=== PATIENT | female | born 1945 | race Caucasian/White ===

== ENCOUNTER 2016-10-30 16:05 | Inpatient (IN) | payer MEDICARE ==
--- NOTE | ~2016-10-30 | DS ---
Discharge Summary [facility] [address] [place]. [address] NAME: LORI YU : 41 STATUS : DIS IN PAT#: [id number] AGE: 71 ADM/REG DATE : 10/30/16 MR#: [id number] REPORT SERV DATE: 11/03/16 DICTATED BY: JANIE KELLER DATE: 11/02/16 REPORT STATUS : Draft TRANSCRIBED BY: MODL DATE: 11/02/16 ADMISSION DATE: 10/30/2016 DISCHARGE DATE: 11/02/2016 DISCHARGE DIAGNOSES: 1. Bacteremia with a coagulase-negative Staphylococcus, etiology is uncertain. 2. Negative transesophageal echocardiography for vegetation. 3. Influenza B positive with respiratory manifestation without pneumonia was treated. 4. Diabetes mellitus type 2, stable. 5. Essential hypertension. 6. Morbid obesity. Body mass index 44. 7. Anemia. 8. Chronic kidney disease stage 2, stable. 9. Osteoarthritis. 10.Aortic stenosis. 11.Obstructive sleep apnea using continuous positive airway pressure at home. CONSULTANTS: 1. Dr. Lagos. 2. Ba Dawkins M.D. PROCEDURE: Transesophageal echocardiogram, which did not show any vegetation of the valves. HISTORY OF PRESENT ILLNESS: This is a 71-year-old obese female patient, who initially came to the hospital with generalized weakness and shortness of breath. Please see dictated H and P done by Dr. Kaur dated October 23. HOSPITAL COURSE: Please see dictated discharge summary done by Dr. Karen Durand. Briefly, the patient has presented to the hospital with generalized weakness and shortness of breath, had evaluation and was found to have bacteremia. Three blood cultures have been positive with Staphylococcus, which is coagulase negative. Seen by Dr. Lagos from the [facility], was treated with empiric antibiotics at the beginning, was narrowed down to Ancef. She was found to have bacteremia, she was stabilized, and transferred to [facility] for obtaining a MICHEAL. Dr. 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 MICHEAL did not show any vegetation on her valves. Since there are no other causes or source of infection of this bacteremia, the patient was recommended continue the Ancef for a total of four weeks under Dr. Lagos's followup. She remains in stable condition and maximized inpatient benefit and she is stable enough to go home. We are setting up the home Ancef and home PT, and the patient will be discharged to home in stable condition. DISCHARGE MEDICATIONS: 1. Ancef 2 g every 8 hours IV. 2. Catapres patch, two patches every seven days. 3. Levemir 18 units twice a day. 4. Spiriva once a day. Discharge Summary [place] [id number] [place] [address] NAME: LORI YU : 41 STATUS : DIS IN PAT#: [id number] AGE: 71 ADM/REG DATE : 10/30/16 MR#: [id number] REPORT SERV DATE: 11/03/16 DICTATED BY: JANIE KELLER DATE: 11/02/16 REPORT STATUS : Draft TRANSCRIBED BY: MARIE DATE: 11/02/16 5. Florastor twice a day. 6. Myrbetriq 50 mg once a day. 7. Claritin 10 mg once a day. 8. Avapro 300 mg once a day. 9. Aspirin 81 mg once a day. 10.Apresoline 75 mg every eight hours. 11.Zocor 20 mg once at nighttime. 12.Singulair 10 mg once a day. 13.Labetalol 200 mg twice a day. 14.Dulera twice a day. 15.Senokot as needed. DISPOSITION: The patient is discharged to home with home health and home antibiotic treatment. The patient will need to follow weekly blood culture and blood work under Dr. Lagos's care. TIME SPENT: More than 30 minutes on discharge coordination and education. EKL/MODL Janie Keller M.D. / [id number] CC: Yolanda Dahl M.D.
--- NOTE | ~2016-10-30 | TEE ---
Transesophageal Echocardiogram [facility] [address] [place]. [address] NAME: LORI YU : 41 STATUS : ADM IN [facility]#: [id number] AGE: 71 ADM/REG DATE : 10/30/16 MR#: [id number] REPORT SERV DATE: 11/01/16 DICTATED BY: DATE: REPORT STATUS : Draft TRANSCRIBED BY: MODL DATE: 11/01/16 CHIEF COMPLAINT/REASON FOR STUDY: Bacteremia. Written informed consent obtained. Please see chart for documentation. PROCEDURE IN DETAIL: With the assistance of my Anesthesia colleagues, Mrs. Yu was sedated for the procedure. The transesophageal probe was placed with one attempt. There were no complications. 1. The aortic valve appeared trileaflet and mildly sclerotic. There was mild color flow evidence of aortic valvular regurgitation. No evidence of vegetations. 2. The left ventricular systolic function is grossly normal with a visually estimated ejection fraction greater than 50%. 3. The mitral valve appeared to open normally. There was trivial color flow and Doppler evidence for mitral valvular regurgitation. 4. The tricuspid valve opened normally. There was no significant tricuspid valvular regurgitation noted. 5. The pulmonary valve opened normally. There was mild color flow evidence for pulmonary valvular regurgitation. 6. The right ventricle appeared normal in chamber size and systolic function. 7. There was no evidence of pericardial effusion. 8. The thoracic aorta was examined. There was mild atherosclerotic plaque noted. IMPRESSION: 1. No evidence of infective endocarditis. 2. Mild aortic valvular regurgitation. 3. Mild pulmonary valvular regurgitation. 4. Normal left ventricular systolic function via visual estimate with an ejection fraction greater than 50%. LGC/MARIE Daphne Crowley M.D. / [id number] CC: Yolanda Dahl M.D.
[~2016-10-30 16:05] MED LIST: ADALAT CC60 MG PO; ADVAIR230P INH; ADVAIR250 INH; ALD250 PO; ALLEGRA180 PO; ALLEGRA60 MG OR; APRES25 PO; APRES50 PO; ASAB PO; AVAPRO300 MG PO; BYETTA SC; CATAPRES3 TOP; DIOVAN HCT320 MG/25 PO; DITROPAN XL10 MG PO; FLONASE NAS; FLONASE0.05 %; FUSION PLUS PO; HUMALOG SC; IBU800 PO; IMOD PO; L40 PO; LANTUS SC; MAXAIR AUTOHALE1 INH INH; METOLAZONE2.5 MG OR; MYRBETRIQ50 MG PO; NOVOLOG SC; NXL3 PO; NXL9 PO; PEPCID40 MG OR; SENTAB PO; SINGULAIR1 PO; SPIRIVA INH; SPIRO25 PO; TOVIAZ8 MG PO; TRAN200 PO; TUMSROLL PO; ULTRAM50 PO; VERELAN240 MG PO; VITD PO; ZAROX2.5B PO; ZOCOR20 PO; [UNRECOGNIZED DRUG - CODE] PO
[2016-10-31 04:22] LABS: BASOPHILS 0.1 %; BASOPHILS ABSOLUTE 0.01 10/3/uL (0.0-0.16); HEMATOCRIT 30.4 % (36.0-48.0); IMMATURE GRANULOCYTES 0.4 %; IMMATURE GRANULOCYTES ABSOLUTE 0.03 10/3/uL (0.0-0.11); LYMPHOCYTES 22.9 %; LYMPHOCYTES ABSOLUTE 1.82 10/3/uL (0.67-4.30); MEAN CORPUSCULAR HEMOGLOB 30.7 pg (26.0-34.0); MEAN PLATELET VOLUME 9.5 fL (9.2-13.0); MONOCYTES 12.3 %; MONOCYTES ABSOLUTE 0.98 10/3/uL (0.21-1.20); NEUTROPHILS 59.3 %; PLATELET COUNT 269 10/3/uL (150-400); RED CELL COUNT 3.26 10/6/uL (4.0-5.6); WHITE BLOOD CELLS 7.9 10/3/uL (4.5-10.5)
[2016-10-31 04:24] LABS: MANUAL DIFF NO %; MEAN CORPUS HGB CONC 32.9 g/dL (32.0-36.0); MEAN CORPUSCULAR VOLUME 93.3 fL (80-100)
[2016-10-31 04:30] LABS: INTERNATIONAL NORMAL RATI 1.3 UNITS (-); PROTIME (NOT ORD) 15.7 SEC (12.0-14.5)
[2016-10-31 04:36] LABS: BUN (BLOOD UREA NITROGEN) 22 MG/DL (6-23); CALCIUM, SERUM 9.2 MG/DL (8.5-10.4); CHLORIDE, SERUM 111 MMOL/L (96-112); CO2 (CARBON DIOXIDE) 23 MMOL/L (24-34); CREATININE 1.12 MG/DL (0.55-1.02); GFR AFRICAN AMERICAN 56 ML/MIN (>=60); GFR NON AFRICAN AMERICAN 49 ML/MIN (>=60); GLUCOSE, SERUM 98 MG/DL (60-99); PHOSPHORUS, SERUM 2.9 MG/DL (2.5-4.5); POTASSIUM, SERUM 4.5 MMOL/L (3.5-5.3); SODIUM, SERUM 145 MMOL/L (135-148)
[2016-11-01 04:59] LABS: BASOPHILS 0.1 %; BASOPHILS ABSOLUTE 0.01 10/3/uL (0.0-0.16); EOSINOPHILS 4.3 %; EOSINOPHILS ABSOLUTE 0.29 10/3/uL (0.0-0.53); HEMATOCRIT 30.3 % (36.0-48.0); HEMOGLOBIN 9.9 g/dL (12.0-16.0); IMMATURE GRANULOCYTES 0.6 %; IMMATURE GRANULOCYTES ABSOLUTE 0.04 10/3/uL (0.0-0.11); LYMPHOCYTES 25.4 %; LYMPHOCYTES ABSOLUTE 1.71 10/3/uL (0.67-4.30); MEAN CORPUS HGB CONC 32.7 g/dL (32.0-36.0); MEAN CORPUSCULAR HEMOGLOB 30.7 pg (26.0-34.0); MEAN CORPUSCULAR VOLUME 94.1 fL (80-100); MEAN PLATELET VOLUME 9.7 fL (9.2-13.0); MONOCYTES 15.1 %; MONOCYTES ABSOLUTE 1.02 10/3/uL (0.21-1.20); NEUTROPHILS 54.5 %; NEUTROPHILS ABSOLUTE 3.67 10/3/uL (2.02-8.40); PLATELET COUNT 271 10/3/uL (150-400); RBC DISTRIBUTION WIDTH 13.1 % (12.0-16.0); RED CELL COUNT 3.22 10/6/uL (4.0-5.6); WHITE BLOOD CELLS 6.7 10/3/uL (4.5-10.5)
[2016-11-01 05:03] LABS: INTERNATIONAL NORMAL RATI 1.1 UNITS (-); MANUAL DIFF NO %; PROTIME (NOT ORD) 14.3 SEC (12.0-14.5)
[2016-11-01 05:13] LABS: BUN (BLOOD UREA NITROGEN) 22 MG/DL (6-23); CHLORIDE, SERUM 112 MMOL/L (96-112); CO2 (CARBON DIOXIDE) 23 MMOL/L (24-34); CREATININE 1.24 MG/DL (0.55-1.02); GFR AFRICAN AMERICAN 50 ML/MIN (>=60); GFR NON AFRICAN AMERICAN 43 ML/MIN (>=60); GLUCOSE, SERUM 110 MG/DL (60-99); PHOSPHORUS, SERUM 2.9 MG/DL (2.5-4.5); POTASSIUM, SERUM 4.5 MMOL/L (3.5-5.3); SODIUM, SERUM 144 MMOL/L (135-148)
[2016-11-02 07:40] LABS: BASOPHILS 0.1 %; BASOPHILS ABSOLUTE 0.01 10/3/uL (0.0-0.16); EOSINOPHILS 2.8 %; HEMATOCRIT 30.6 % (36.0-48.0); HEMOGLOBIN 9.9 g/dL (12.0-16.0); IMMATURE GRANULOCYTES 0.3 %; IMMATURE GRANULOCYTES ABSOLUTE 0.02 10/3/uL (0.0-0.11); LYMPHOCYTES 21.3 %; LYMPHOCYTES ABSOLUTE 1.55 10/3/uL (0.67-4.30); MEAN CORPUS HGB CONC 32.4 g/dL (32.0-36.0); MEAN CORPUSCULAR HEMOGLOB 30.3 pg (26.0-34.0); MEAN CORPUSCULAR VOLUME 93.6 fL (80-100); MEAN PLATELET VOLUME 9.8 fL (9.2-13.0); MONOCYTES 13.2 %; MONOCYTES ABSOLUTE 0.96 10/3/uL (0.21-1.20); NEUTROPHILS 62.3 %; NEUTROPHILS ABSOLUTE 4.53 10/3/uL (2.02-8.40); PLATELET COUNT 271 10/3/uL (150-400); RBC DISTRIBUTION WIDTH 13.3 % (12.0-16.0); RED CELL COUNT 3.27 10/6/uL (4.0-5.6); WHITE BLOOD CELLS 7.3 10/3/uL (4.5-10.5)
[2016-11-02 07:41] LABS: MANUAL DIFF NO %
[2016-11-02 08:06] LABS: BUN (BLOOD UREA NITROGEN) 22 MG/DL (6-23); CALCIUM, SERUM 9.3 MG/DL (8.5-10.4); CHLORIDE, SERUM 112 MMOL/L (96-112); CO2 (CARBON DIOXIDE) 23 MMOL/L (24-34); CREATININE 1.26 MG/DL (0.55-1.02); GFR AFRICAN AMERICAN 49 ML/MIN (>=60); GFR NON AFRICAN AMERICAN 42 ML/MIN (>=60); GLUCOSE, SERUM 104 MG/DL (60-99); PHOSPHORUS, SERUM 3.4 MG/DL (2.5-4.5); POTASSIUM, SERUM 4.4 MMOL/L (3.5-5.3); SODIUM, SERUM 145 MMOL/L (135-148)
[2016-11-02] MEDS ORDERED: CEFAZ1 IV (16:06)
[2016-11-02] MEDS ORDERED: FLORASTOR250 MG PO (16:09)
== END 2016-11-02 19:12 | disposition home health service (06) | DRG 872 ==
LOC: 7NO 16:05
PROVIDERS: Internal Medicine; Internal Medicine Cardiovascular Disease
PROC: B246ZZ4 Ultrasonography of Right and Left Heart, Transesophageal (ICD-10-PCS; principal; 2016-11-01)
PROC: 02HV33Z Insertion of Infusion Device into Superior Vena Cava, Percutaneous Approach (ICD-10-PCS; 2016-11-01)
PROC: 4A02X4A Measurement of Cardiac Electrical Activity, Guidance, External Approach (ICD-10-PCS; 2016-11-01)
DX: R78.81 Bacteremia (principal); E11.22 Type 2 diabetes mellitus with diabetic chronic kidney disease; E11.65 Type 2 diabetes mellitus with hyperglycemia; Z68.41 Body mass index [BMI] 40.0-44.9, adult; I06.0 Rheumatic aortic stenosis; J10.1 Influenza due to other identified influenza virus with other respiratory manifestations; B95.7 Other staphylococcus as the cause of diseases classified elsewhere; N18.2 Chronic kidney disease, stage 2 (mild); M19.90 Unspecified osteoarthritis, unspecified site; G47.33 Obstructive sleep apnea (adult) (pediatric); E66.01 Morbid (severe) obesity due to excess calories; I12.9 Hypertensive chronic kidney disease with stage 1 through stage 4 chronic kidney disease, or unspecified chronic kidney disease; J44.9 Chronic obstructive pulmonary disease, unspecified; E78.5 Hyperlipidemia, unspecified; D64.9 Anemia, unspecified; I35.0 Nonrheumatic aortic (valve) stenosis; E78.00 Pure hypercholesterolemia, unspecified; M81.0 Age-related osteoporosis without current pathological fracture; J45.909 Unspecified asthma, uncomplicated; Z79.4 Long term (current) use of insulin; Z96.653 Presence of artificial knee joint, bilateral; Z88.0 Allergy status to penicillin; Z90.710 Acquired absence of both cervix and uterus; Z98.890 Other specified postprocedural states; Z90.49 Acquired absence of other specified parts of digestive tract; Z91.14 Patient's other noncompliance with medication regimen
CPT/HCPCS: 36569; 71010; 71020; 80048; 80053; 80069; 81001; 82550; 82553; 82607; 82962; 83605; 83735; 83880; 84100; 84145; 84439; 84443; 84481; 84484; 85025; 85610; 86140; 87040; 87045; 87046; 87046-59; 87070; 87077; 87150; 87186; 87205; 87493; 87493-59; 87804; 87899; 87899-59; 89055; 93005; 93306; 93312; 93320; 93325; 94640; 97161-GP; 97162-GP; 97164-GP; 99285; A9270-GY; C1751; G8978-CH-GP; G8978-CI-GP; G8979-CH-GP; G8979-CI-GP; G8980-CH-GP; G8980-CI-GP; J0690; J3370